=== PATIENT | male | born 1950 | race Caucasian/White ===

== ENCOUNTER → 2018-05-09 | Outpatient (CLI) | payer MEDICARE ==
--- NOTE | 2018-05-13 13:57 | REP ---
Clinical: Shortness of breath . Comparison: None . Technique: PA and lateral. Findings: The mediastinum and cardiac silhouette are normal. The lung osuna are clear and without acute consolidation, effusion, or pneumothorax. The skeletal structures are intact and normal. Impression: 1. No acute cardiopulmonary process. If the patient remains symptomatic consider chest CT for further evaluation.
== END ==
LOC: M CLY 15:36
PROVIDERS: ATTEND Physician Assistant
DX: R06.02 Shortness of breath (principal)

== ENCOUNTER 2018-10-17 12:00 | Outpatient (RCR) | payer MEDICARE ==
[2018-10-17] MEDS ORDERED: LOPR1TAB6 PO (13:55)
[2018-10-17] MEDS ORDERED: LISI-538 PO (13:55)
[2018-10-17] MEDS ORDERED: ASPI81TA85 PO (13:55)
--- NOTE | 2018-10-17 14:03 | CARECAPL ---
Assessment Account #s: Initial Assessment General Diagnoses: CABG Date of event: Jun 21, 2018 Physician: Cristóbal Lakhani Date Entered Program: Oct 17, 2018 Risk strat for cardiac event: Moderate Exercise Date: Oct 17, 2018 Assessment: Initial Assessment Exercise Prescription Plan to educate about cardiac risk factors and to provide a monitored exercise program to build strength and endurance Modalities initiated: Treadmill (will add), Nustep (will add), Arm Aerometer (will add), Dumbells (will add), Recumbent Bike (will add) Frequency: 3-4 Duration (Minutes) 30-60 minutes total exercise a day. 6-15 work intervals in minutes. prn rest intervals in minutes. Functional Capacity Goal Sustained Metabolic Equivalent of a task (MET) goal of for minutes. Intensity: 3-Moderate Progression (METS) Increase by: .5 METS every: 2-3 sessions Angina with ex: No Target Heart Rate rest + 35-40 Resistance Training: Yes Reps: 6-8 Hypertension: Yes Hypertension controlled with: Diet Resting 131/62 Meds see below Medications Scheduled Aspirin (Aspir 81), 81 MG PO DAILY, (Reported) Lisinopril (Lisinopril), 1 TAB PO DAILY, (Reported) Metoprolol Tartrate (Lopressor), 1 TAB PO BID, (Reported) Target Goals Individual exercise Rx (1) BP 140/90 or 130/80 if DM or CKD (1) Aerobic active 30+min 5 days per week (1) Nutrition Date: Oct 17, 2018 Assessment: Initial Assessment Diabetes Diabetes: Yes Diabetes medication insulin Monitor Blood Sugar at home: Yes Weight Management Weight (lbs): 176.4 Height (inches): 64 BMI: 30.2 Special Diet: low salt, mediteranean diet Alcohol: none Diet Access Tool: Rate your plate Score: 58 Intervention Diet Class: Yes (will see this program) Target goal LDL-C<100 if triglycerides are >200 Non-HDL-C should be <130 (1) LDL-C<70 for high risk patients (4) HbA1c<7% (1) BMI<25 Waist cir<40in M/<35in F (1) Education Date: Oct 17, 2018 Assessment: Initial Assessment Learning Barriers: ready Knowledge Test Score: 10 Family Support: Yes Tobacco use: No Quit: >6 months (1979) Intervention Referral to smoking cessation: No Individual education and couns: No Tobacco Adjunct: No Education class schedule given: Yes Target Goals Complete cessation of tobacco use (1). Psychosocial Date: Oct 17, 2018 Assessment: Initial Assessment Psych Test (Initial/Discharge) Tool Used: CESD Score: 4 Intervention Physician Consult: No Physician Referral: No Stress Management Class: Yes Uses Stress Management Skills: Yes Target Goal Assess presence or absence of depression using a valid screening tool (1). Maximize coping skills (2). Positive support system (2). Patient/Program Goal Preventative Medication: Yes Aspirin, Yes Beta blockade, Yes Statin/OTR lipid Lowering Fall Risk Assess: No Provider Assessment Provider Assessment: Proceed with rehab Beth Schwab RN Oct 17, 2018 14:03
[2018-10-21] MEDS ORDERED: CYCL5TAB PO (09:47)
[2018-10-21] MEDS ORDERED: ELIQ5TAB PO (09:47)
[2018-10-21] MEDS ORDERED: TURM500C5 PO (09:47)
[2018-10-21] MEDS ORDERED: ATOR1TAB19 PO (09:47)
[2018-10-21] MEDS ORDERED: METF10004 PO (09:47)
[2018-10-21] MEDS ORDERED: B-12100021 PO (09:47)
[2018-10-21] MEDS ORDERED: FLON1SPR NARES (09:47)
[2018-10-21] MEDS ORDERED: BASA100I SC (09:47)
[2018-10-21] MEDS ORDERED: VITA200028 PO (09:47)
== END 2018-10-20 ==
LOC: M CR 12:00
DX: Z95.1 Presence of aortocoronary bypass graft (principal)

== ENCOUNTER 2018-11-15 09:48 | Outpatient (RCR) | payer MEDICARE ==
--- NOTE | 2018-11-11 16:32 | CARECAPL ---
Assessment Account #s: Re-Assessment I General Diagnoses: CABG Date of event: Jun 21, 2018 Physician: Cristóbal Lakhani Date Entered Program: Oct 17, 2018 Risk strat for cardiac event: Moderate Exercise Date: Nov 11, 2018 Assessment: Re-Assessment I Exercise Prescription Plan TO EDUCATE AND BUILD ENDURANCE THROUGH MONITORED EXERCISE Modalities initiated: Treadmill (METS=3.63/RPE=2), Nustep (METS=5.6/RPE=3), Arm Aerometer (METS=3.6/RPE=3), Dumbells (5#/RPE=2), Recumbent Bike (METS=2.9/RPE=3) Frequency: 3 Duration (Minutes) 30-60 minutes total exercise a day. 10-12 work intervals in minutes. 5 rest intervals in minutes. Functional Capacity Goal Sustained Metabolic Equivalent of a task (MET) goal of 3.75-4.75 for 15-20 minutes. Intensity: 3-Moderate Progression (METS) Increase by: 0.5 METS every: 5 sessions Angina with ex: No Target Heart Rate +35-40 Resistance Training: Yes Weight (pounds): 5 Reps: 12-15 Hypertension: Yes Hypertension controlled with: Medication Resting 98/60 Peak Exercise BP 148/80 Medications Scheduled Apixaban (Eliquis), 5 MG PO BID, (Reported) Aspirin (Aspir 81), 81 MG PO DAILY, (Reported) Atorvastatin Calcium (Atorvastatin Calcium), 10 MG PO DAILY, (Reported) Cyanocobalamin (Vitamin B-12) (B-12), 1,000 MCG PO DAILY, (Reported) Ergocalciferol (Vitamin D2) (Vitamin D2), 1 TAB PO DAILY, (Reported) Fluticasone Propionate (Flonase Allergy Relief), 1 SPRAY NARES DAILY, (Reported) Lisinopril (Lisinopril), 2.5 TAB PO DAILY, (Reported) Metformin HCl (Metformin HCl), 1 GRAM PO BID, (Reported) Metoprolol Tartrate (Lopressor), 25 TAB PO BID, (Reported) Turmeric Root Extract (Turmeric), 1,053 MG PO DAILY, (Reported) Scheduled PRN Cyclobenzaprine HCl (Cyclobenzaprine HCl), 5 MG PO TIDP PRN for muscle spasms, (Reported) Miscellaneous Medications Insulin Glargine,Hum.rec.anlog (Basaglar Kwikpen U-100), 100 UNIT SC, (Reported) Current BP 104/88 Med Change: No Intervention Resistance Training: Yes Education: Self pulse, Ex safety, S/S to report (INSTRUCTED TO NOTIFY STAFF OF CHEST PAIN/SOB), Low NA diet, BP medication, RPE Scale, Equipment orientation (ORIENTED TO EACH PIECE OF EQUIPMENT USED), warm up/cool down (EDUCATED ON IMPORTANCE OF WARM UPS PRIOR TO EXERCISE AND COOL DOWNS AFTER EXERCISE), Understand BP, Physical Active (INSTRUCTED ON IMPORTANCE OF CONTINUED EXERCISE AFTER FINISHING CARDIAC REHAB PROGRAM) Target Goals Individual exercise Rx (1) BP 140/90 or 130/80 if DM or CKD (1) Aerobic active 30+min 5 days per week (1) Nutrition Date: Nov 11, 2018 Assessment: Re-Assessment I Med Change: No Diabetes Diabetes: No Monitor Blood Sugar at home: No Medication Change: No Weight Management Weight (lbs): 176 Special Diet: low salt, mediteranean diet Alcohol: none Current Weight (pounds): 176 Intervention Tilting Head Band Sawyer Consult: Yes (WILL SEE EXPLOSIVE MAN WHILE IN PROGRAM) Nurse/patient discussion: Yes Dietary Goals MAKE HEART HEALTHY CHOICES Diet Class: Yes Referral to Diabetes education: No Referral to lipid clinic: No Referral to weight mangement p: No Education Eating Healthy Target goal LDL-C<100 if triglycerides are >200 Non-HDL-C should be <130 (1) LDL-C<70 for high risk patients (4) HbA1c<7% (1) BMI<25 Waist cir<40in M/<35in F (1) Education Date: Nov 11, 2018 Assessment: Re-Assessment I Learning Barriers: ready Family Support: Yes Tobacco use: No Tobacco Use Smokeless tobacco: No Intervention Referral to smoking cessation: No Individual education and couns: No Tobacco Adjunct: No Education class schedule given: No Attended education classes: No Education: CAD, Risk factors, med compliance (EDUCATED ON IMPORTANCE OF TAKING MEDS PRESCRIBED), cardiac A&P, Angina S/S, Sexuality Target Goals Complete cessation of tobacco use (1). Psychosocial Date: Nov 11, 2018 Assessment: Re-Assessment I Intervention Physician Consult: No Physician Referral: No Med Change: No Stress Management Class: No Uses Stress Management Skills: Yes Education Education: Coping Techniques, S/S depression, Relaxation Techniques Target Goal Assess presence or absence of depression using a valid screening tool (1). Maximize coping skills (2). Positive support system (2). Patient/Program Goal Preventative Medication: Yes Aspirin, Yes Beta blockade Fall Risk Assess: Yes (NOT A FALL RISK) Provider Assessment Session Number: 9 Provider Assessment: Proceed with rehab Cahpin Alba RN Nov 11, 2018 16:32
[~2018-11-15 09:48] MED LIST: ASPI81TA85 PO; ATOR1TAB19 PO; B-12100021 PO; BASA100I SC; CYCL5TAB PO; ELIQ5TAB PO; FLON1SPR NARES; LISI-538 PO; LOPR1TAB6 PO; METF10004 PO; TURM500C5 PO; VITA200028 PO
[2018-11-22] MEDS ORDERED: VICT18IN SC (07:54)
== END 2018-11-20 ==
LOC: M CR 09:48
DX: Z95.1 Presence of aortocoronary bypass graft (principal)

== ENCOUNTER 2018-12-20 08:07 | Outpatient (RCR) | payer MEDICARE ==
--- NOTE | 2018-12-04 10:27 | CARECAPL ---
Assessment Account #s: Re-Assessment II General Diagnoses: CABG Date of event: Jun 21, 2018 Physician: Cristóbal Lakhani Date Entered Program: Oct 17, 2018 Risk strat for cardiac event: Moderate Exercise Date: Dec 04, 2018 Assessment: Re-Assessment II Exercise Prescription Modalities initiated: Treadmill (2.0/.5 mts 2.81 rpe 2 12 minutes), Nustep (L7 mts 5.7 rpe 3 15 minutes), Arm Aerometer (3.0 mts 3.8 rpe 3 10 minutes), Dumbells, Recumbent Bike (R5 mts 4.3 rpe 3 10 minutes) Duration (Minutes) minutes total exercise a day. work intervals in minutes. rest intervals in minutes. Functional Capacity Goal Sustained Metabolic Equivalent of a task (MET) goal of for minutes. Progression (METS) Increase by: METS every: sessions Resistance Training: Yes Weight (pounds): 6 Reps: 8-12 Medications Scheduled Apixaban (Eliquis), 5 MG PO BID, (Reported) Aspirin (Aspir 81), 81 MG PO DAILY, (Reported) Atorvastatin Calcium (Atorvastatin Calcium), 10 MG PO DAILY, (Reported) Cyanocobalamin (Vitamin B-12) (B-12), 1,000 MCG PO DAILY, (Reported) Ergocalciferol (Vitamin D2) (Vitamin D2), 1 TAB PO DAILY, (Reported) Fluticasone Propionate (Flonase Allergy Relief), 1 SPRAY NARES DAILY, (Reported) Liraglutide (Victoza 2-Дмитрий), 1.2 MG SC DAILY, (Reported) Lisinopril (Lisinopril), 2.5 TAB PO DAILY, (Reported) Metformin HCl (Metformin HCl), 1 GRAM PO BID, (Reported) Metoprolol Tartrate (Lopressor), 25 TAB PO BID, (Reported) Turmeric Root Extract (Turmeric), 1,053 MG PO DAILY, (Reported) Scheduled PRN Cyclobenzaprine HCl (Cyclobenzaprine HCl), 5 MG PO TIDP PRN for muscle spasms, (Reported) Miscellaneous Medications Insulin Glargine,Hum.rec.anlog (Basaglar Kwikpen U-100), 100 UNIT SC, (Reported) Current BP 120/80 Med Change: No Intervention Home exercise: Type (home exercise program on last ITP) Education Goals Met: Yes (all education covered on last ITP) Target Goals Individual exercise Rx (1) BP 140/90 or 130/80 if DM or CKD (1) Aerobic active 30+min 5 days per week (1) Nutrition Date: Dec 04, 2018 Assessment: Re-Assessment II Med Change: No Current Weight (pounds): 178 Intervention 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 Psychosocial Date: Dec 04, 2018 Assessment: Re-Assessment II Med Change: No Education Goals Met: Yes (all education covered on last ITP) Target Goal Assess presence or absence of depression using a valid screening tool (1). Maximize coping skills (2). Positive support system (2). Provider Assessment Session Number: 14 Provider Assessment: No changes (good attendance. Works hard, has excellent attitude) Beth cShwab RN Dec 04, 2018 10:27
[~2018-12-20 08:07] MED LIST changes: +VICT18IN SC
== END 2018-12-21 ==
LOC: M CR 08:07
PROVIDERS: ATTEND Internal Medicine
DX: Z95.1 Presence of aortocoronary bypass graft (principal)

== ENCOUNTER 2018-12-27 08:05 | Outpatient (RCR) | payer MEDICARE ==
--- NOTE | 2018-12-25 08:54 | CARECAPL ---
Assessment Account #s: Re-Assessment II (III) General Diagnoses: CABG Date of event: Jun 21, 2018 Physician: Cristóbal Lakhani Date Entered Program: Oct 17, 2018 Risk strat for cardiac event: Moderate Exercise Date: Dec 25, 2018 Assessment: Re-Assessment II (III) Stages of change: Pre-contemplation Exercise Prescription Modalities initiated: Treadmill (2.0/5.0 mts 3.91 rpe 3), Nustep (L7 mts 3.8 rpe 3 15 minutes), Arm Aerometer (3.5 mts 4.2 rpe 3 10 minutes), Dumbells, Recumbent Bike (R5 mts 4.9 rpe 3 10 minutes) Duration (Minutes) 30 - 60 minutes total exercise a day. 15 - 20 work intervals in minutes. PRN rest intervals in minutes. Functional Capacity Goal Sustained Metabolic Equivalent of a task (MET) goal of 5.0-6.0 for 15-20 minutes. Intensity: 3-Moderate Progression (METS) Increase by: METS every: sessions Angina with ex: No Resistance Training: Yes Weight (pounds): 8 Reps: 8-12 Medications Scheduled Apixaban (Eliquis), 5 MG PO BID, (Reported) Aspirin (Aspir 81), 81 MG PO DAILY, (Reported) Atorvastatin Calcium (Atorvastatin Calcium), 10 MG PO DAILY, (Reported) Cyanocobalamin (Vitamin B-12) (B-12), 1,000 MCG PO DAILY, (Reported) Ergocalciferol (Vitamin D2) (Vitamin D2), 1 TAB PO DAILY, (Reported) Fluticasone Propionate (Flonase Allergy Relief), 1 SPRAY NARES DAILY, (Reported) Liraglutide (Victoza 2-Дмитрий), 1.2 MG SC DAILY, (Reported) Lisinopril (Lisinopril), 2.5 TAB PO DAILY, (Reported) Metformin HCl (Metformin HCl), 1 GRAM PO BID, (Reported) Metoprolol Tartrate (Lopressor), 25 TAB PO BID, (Reported) Turmeric Root Extract (Turmeric), 1,053 MG PO DAILY, (Reported) Scheduled PRN Cyclobenzaprine HCl (Cyclobenzaprine HCl), 5 MG PO TIDP PRN for muscle spasms, (Reported) Miscellaneous Medications Insulin Glargine,Hum.rec.anlog (Edmund Azevedo U-100), 100 UNIT SC, (Reported) Current BP 118/78 Med Change: No Intervention Home exercise: Type (see prior ITP) Education Goals Met: Yes (all education done on prior ITP) Target Goals Individual exercise Rx (1) BP 140/90 or 130/80 if DM or CKD (1) Aerobic active 30+min 5 days per week (1) Nutrition Date: Dec 25, 2018 Assessment: Re-Assessment II (III) Diabetes Diabetes: Yes Medication Change: No Random Blood Sugar: 104 Blood sugar in range: Yes Current Weight (pounds): 178 Weight Goal 160 Intervention Diet Class: Yes (met with rn community health on 10/21/2018) Referral to Diabetes education: No Referral to lipid clinic: No Referral to weight mangement p: No Education Goals Met: No (progressing toward goals.) Target goal LDL-C<100 if triglycerides are >200 Non-HDL-C should be <130 (1) LDL-C<70 for high risk patients (4) HbA1c<7% (1) BMI<25 Waist cir<40in M/<35in F (1) Education Date: Dec 25, 2018 Assessment: Re-Assessment II (III) Stages of change: Pre-contemplation Education Goals Met: No (progressing toward goals all education covered on previous ITP) Target Goals Complete cessation of tobacco use (1). Psychosocial Date: Dec 25, 2018 Assessment: Re-Assessment II (III) Stages of change: Pre-contemplation Stress Management Class: Yes Uses Stress Management Skills: Yes Education Goals Met: No (all education covered on prior ITP) Target Goal Assess presence or absence of depression using a valid screening tool (1). Maximize coping skills (2). Positive support system (2). Provider Assessment Session Number: 19 Provider Assessment: No changes (excellent attendance, work ethic and very receptive to continued education) Beth Schwab RN Dec 25, 2018 08:54
--- NOTE | 2019-01-08 16:55 | CARECAPL ---
Assessment Account #s: Discharge General Diagnoses: CABG Date of event: Jun 21, 2018 Physician: Cristóbal Lakhani Date Entered Program: Oct 17, 2018 Risk strat for cardiac event: Moderate Exercise Assessment: Followup/Discharge Stages of change: maintenance Exercise Prescription Modalities initiated: Treadmill (METS=3.36/RPE=3), Nustep (METS=4.6/RPE=3), Arm Aerometer (METS=4.1/RPE=3), Dumbells (8#/RPE=3), Recumbent Bike (METS=4.9/RPE=3) Frequency: 3 Duration (Minutes) 30 - 60 minutes total exercise a day. 15 - 20 work intervals in minutes. PRN rest intervals in minutes. Functional Capacity Goal Sustained Metabolic Equivalent of a task (MET) goal of 5.0-6.0 for 15-20 minutes. Intensity: 3-Moderate Progression (METS) Increase by: METS every: sessions Angina with ex: No Resistance Training: Yes Weight (pounds): 8 Reps: 12-15 Hypertension: Yes Hypertension controlled with: Medication (METOPROLOL/LISINOPRIL) Resting 130/80 Peak Exercise BP 148/84 Medications Scheduled Apixaban (Eliquis), 5 MG PO BID, (Reported) Aspirin (Aspir 81), 81 MG PO DAILY, (Reported) Atorvastatin Calcium (Atorvastatin Calcium), 10 MG PO DAILY, (Reported) Cyanocobalamin (Vitamin B-12) (B-12), 1,000 MCG PO DAILY, (Reported) Ergocalciferol (Vitamin D2) (Vitamin D2), 1 TAB PO DAILY, (Reported) Fluticasone Propionate (Flonase Allergy Relief), 1 SPRAY NARES DAILY, (Reported) Liraglutide (Victoza 2-Дмитрий), 1.2 MG SC DAILY, (Reported) Lisinopril (Lisinopril), 2.5 TAB PO DAILY, (Reported) Metformin HCl (Metformin HCl), 1 GRAM PO BID, (Reported) Metoprolol Tartrate (Lopressor), 25 TAB PO BID, (Reported) Turmeric Root Extract (Turmeric), 1,053 MG PO DAILY, (Reported) Scheduled PRN Cyclobenzaprine HCl (Cyclobenzaprine HCl), 5 MG PO TIDP PRN for muscle spasms, (Reported) Miscellaneous Medications Insulin Glargine,Hum.rec.anlog (Edmund Apontepen U-100), 100 UNIT SC, (Reported) Current BP 130/80 Med Change: No Intervention Resistance Training: Yes Education: Self pulse (EDUCATION DONE ON PRIOR ITP) Education Goals Met: Yes Target Goals Individual exercise Rx (1) BP 140/90 or 130/80 if DM or CKD (1) Aerobic active 30+min 5 days per week (1) Nutrition Date: Jan 08, 2019 Assessment: Followup/Discharge Stages of change: maintenance Lipid- med/supplement ATORVASTATIN 10 MG DAILY Med Change: No Diabetes Diabetes: Yes Diabetes medication METFORMIN, Monitor Blood Sugar at home: Yes Medication Change: No Blood sugar in range: Yes Weight Management Weight (lbs): 178 Weight goal: 160 Special Diet: low salt, low-fat Current Weight (pounds): 178 Weight Goal 160 Intervention Risk Specialist Consult: No Nurse/patient discussion: Yes Dietary Goals MAKE HEART HEALTHY CHOICES Diet Class: Yes (MET WITH ASSESSMENT COUNSELOR 10/21/2018) Referral to Diabetes education: No Referral to lipid clinic: No Referral to weight mangement p: No Education S&S hypo/hyper glycemia, Relate Diabetes in CAD, Eating Healthy Education Goals Met: Yes Target goal LDL-C<100 if triglycerides are >200 Non-HDL-C should be <130 (1) LDL-C<70 for high risk patients (4) HbA1c<7% (1) BMI<25 Waist cir<40in M/<35in F (1) Education Date: Jan 08, 2019 Assessment: Followup/Discharge Learning Barriers: ready Stages of change: maintenance Family Support: Yes Tobacco use: No Tobacco Use Smokeless tobacco: No Intervention Referral to smoking cessation: No Individual education and couns: No Tobacco Adjunct: No Education class schedule given: No Attended education classes: No Education: CAD, Risk factors, med compliance, cardiac A&P, Angina S/S, Sexuality Education Goals Met: Yes Target Goals Complete cessation of tobacco use (1). Psychosocial Date: Jan 08, 2019 Assessment: Followup/Discharge Stages of change: maintenance Intervention Physician Consult: No Physician Referral: No Med Change: No Stress Management Class: No Uses Stress Management Skills: Yes Education Education: Coping Techniques (ALL EDUCATION COVERED ON PRIOR ITP), S/S depression, Relaxation Techniques Education Goals Met: Yes Target Goal Assess presence or absence of depression using a valid screening tool (1). Maximize coping skills (2). Positive support system (2). Fall Risk Assess: Yes (NOT ) Provider Assessment Session Number: 21 Provider Assessment: Proceed with rehab Chapin Alba RN Jan 08, 2019 16:55
== END 2019-01-20 ==
LOC: M CR 08:05
PROVIDERS: ATTEND Internal Medicine
DX: Z95.1 Presence of aortocoronary bypass graft (principal)

== ENCOUNTER 2022-09-05 12:22 | Inpatient (IN) | payer MEDICARE ==
[~2022-09-05] VITALS: Ht 162.6 cm; Wt 80.9 kg
[~2022-09-05 12:22] MED LIST changes: -ASPI81TA85 PO; +ASPI81TA86 PO; -LISI-538 PO; +LISI20TA33 PO
[2022-09-05 13:44] LABS: BASO % 0.3 % (0.0-1.0); EOS % 0.2 % (0.0-3.0); HEMATOCRIT 42.3 % (42.0-52.0); HEMOGLOBIN 13.6 g/dl (13.5-17.5); LYMPH # 1.5 10^3/uL (1.5-5.0); LYMPH % 12.9 % (24.0-44.0); MEAN CORPUSCULAR HEMOGLOBIN 28.3 pg (27.0-33.0); MEAN CORPUSCULAR HGB CONC 32.2 g/dl (32.0-36.5); MEAN CORPUSCULAR VOLUME 88.1 fl (80.0-96.0); MONO # 1.4 10^3/uL (0.0-0.8); NEUTROPHILS # 8.8 10^3/uL (1.5-8.5); NEUTROPHILS % 74.4 % (36.0-66.0); PLATELET COUNT, AUTOMATED 201 10^3/uL (150-450); WHITE BLOOD COUNT 11.8 10^3/uL (4.0-10.0)
[2022-09-05 14:11] LABS: BLOOD UREA NITROGEN 23 MG/DL (9-23); CALCIUM LEVEL 9.4 MG/DL (8.3-10.6); CARBON DIOXIDE LEVEL 26 MMOL/L (20-31); CHLORIDE LEVEL 100 MMOL/L (98-107); CREATININE FOR GFR 0.81 MG/DL (0.70-1.30); GLOMERULAR FILTRATION RATE > 60.0 (>42); GLUCOSE, FASTING 135 MG/DL (74-106); POTASSIUM SERUM 3.9 MMOL/L (3.5-5.1); SODIUM LEVEL 136 MMOL/L (136-145)
[2022-09-05 14:20] LABS: ERYTHROCYTE SEDIMENTATION RATE 89 mm/hr (0-20)
[2022-09-05] MEDS ORDERED: ROSU20TA5 PO (15:00)
[2022-09-05] MEDS ORDERED: NOXI1TAB PO (15:00)
[2022-09-05] MEDS ORDERED: METO1TAB32 PO (15:05)
[2022-09-05] MEDS ORDERED: PRES10CA2 PO (15:05)
[2022-09-05] MEDS ORDERED: TRUL10IN SC (15:05)
[2022-09-05] MEDS ORDERED: VANCOMYCIN HCL 1,500 MG in IV FLUID PLACE HOLDER 1 EA IV ONE (15:55)
[2022-09-05 16:19] LABS: RHEUMATOID FACTOR QUANT 9.5 IU/ML (<14)
[2022-09-05] MEDS ORDERED: VANCOMYCIN HCL 750 MG, VIAL MATE ADAPTER 1 EACH in D5W 250 ML IV ONE ×2 (16:30→17:30)
[2022-09-05] MEDS: INSULIN LISPRO (NovoLOG) PER UNIT SC SCH ×2 (17:30→20:43)
[2022-09-05] MEDS ORDERED: PIPERACILLIN/TAZOBACTAM SOD 3.375 GM in D5W MINI-BAG PLUS 50 ML IV ONE (17:30)
[2022-09-05] MEDS ORDERED: DEXTROSE 50% 50ML SYRINGE IV PRN (17:45)
[2022-09-05] MEDS ORDERED: GLUCAGON INJ 1MG VIAL SC PRN (17:45)
[2022-09-05] MEDS ORDERED: GLUCOSE 4GM CHEW TABLET PO PRN (17:45)
[2022-09-05] MEDS ORDERED: MORPHINE 2 MG/ML 1ML VIAL IV PRN ×2 (17:45)
[2022-09-05 18:21] LABS: ALBUMIN 3.7 G/DL (3.2-5.2); ALKALINE PHOSPHATASE 96 U/L (46-116); ALT/SGPT < 9 U/L (7.0-40); AST/SGOT 15 U/L (<34); BILIRUBIN,DIRECT 0.3 MG/DL (<0.4); BILIRUBIN,TOTAL 1.1 MG/DL (0.3-1.2); TOTAL PROTEIN 7.8 G/DL (5.7-8.2)
[2022-09-05 18:22] LABS: URIC ACID 4.3 MG/DL (3.7-9.2)
[2022-09-05] MEDS ORDERED: ASPI81CH33 PO (18:55)
[2022-09-05] MEDS ORDERED: JARD1TAB PO (18:55)
[2022-09-05] MEDS ORDERED: METF-723 PO (18:55)
[2022-09-05] MEDS ORDERED: LISI2.5T8 PO (18:55)
[2022-09-05] MEDS ORDERED: HOME MED LIST COMPLETE! XX SCH (19:00)
[2022-09-05 19:32] LABS: INR 1.05; PROTHROMBIN TIME 13.9 SECONDS (12.5-14.5)
[2022-09-05 19:33] LABS: PARTIAL THROMBOPLASTIN TIME 29.5 SECONDS (24.8-34.2)
[2022-09-05 19:39] LABS: HEMOGLOBIN A1c 6.7 % (4.0-6.0)
[2022-09-05] MEDS: LACTOBACILLUS ACIDOPHILUS CAP (BACID) PO SCH (20:45)
[2022-09-05 21:50] VITALS: BP 133/73
[2022-09-06] MEDS: PIPERACILLIN/TAZOBACTAM SOD 3.375 GM in D5W MINI-BAG PLUS 50 ML IV SCH ×4 (01:24→18:52)
[2022-09-06] MEDS ORDERED: VANCOMYCIN HCL 1,000 MG, VIAL MATE ADAPTER 1 EACH in D5W 250 ML IV SCH (03:00)
[2022-09-06 05:23] VITALS: BP 125/76
[2022-09-06] MEDS: ACETAMINOPHEN TAB 650MG DOSE (2X325MG) PO PRN ×2 (05:43→21:02)
[2022-09-06 07:12] LABS: HEMOGLOBIN 13.1 g/dl (13.5-17.5); MEAN CORPUSCULAR HEMOGLOBIN 27.4 pg (27.0-33.0); MEAN CORPUSCULAR HGB CONC 31.2 g/dl (32.0-36.5); MEAN CORPUSCULAR VOLUME 87.9 fl (80.0-96.0); PLATELET COUNT, AUTOMATED 181 10^3/uL (150-450); RED BLOOD COUNT 4.78 10^6/uL (4.30-6.10)
[2022-09-06 08:51] LABS: ERYTHROCYTE SEDIMENTATION RATE 126 mm/hr (0-20)
[2022-09-06 09:05] LABS: ALBUMIN 3.3 G/DL (3.2-5.2); ALKALINE PHOSPHATASE 86 U/L (46-116); ALT/SGPT < 9 U/L (7.0-40); AST/SGOT 12 U/L (<34); BLOOD UREA NITROGEN 21 MG/DL (9-23); CALCIUM LEVEL 8.8 MG/DL (8.3-10.6); CARBON DIOXIDE LEVEL 24 MMOL/L (20-31); CHLORIDE LEVEL 100 MMOL/L (98-107); CREATININE FOR GFR 0.74 MG/DL (0.70-1.30); GLOMERULAR FILTRATION RATE > 60.0 (>42); GLUCOSE, FASTING 148 MG/DL (74-106); POTASSIUM SERUM 4.1 MMOL/L (3.5-5.1); SODIUM LEVEL 135 MMOL/L (136-145)
[2022-09-06] MEDS: FLUTICASONE PROP 0.05% NASAL SPRAY 16 GM (FLONASE) NARES SCH (09:35)
[2022-09-06] MEDS: INSULIN LISPRO (NovoLOG) PER UNIT SC SCH ×4 (09:35→20:53)
[2022-09-06] MEDS: METOPROLOL SUCC *XL* 25MG TAB (TopROL *XL*) PO SCH (09:40)
[2022-09-06] MEDS: ENOXAPARIN 40MG/0.4ML SYRINGE (J1650 PER 10MG) SC SCH (09:41)
[2022-09-06] MEDS: LISINOPRIL *2.5 MG* TAB PO SCH (09:52)
[2022-09-06] MEDS: LACTOBACILLUS ACIDOPHILUS CAP (BACID) PO SCH ×2 (09:53→17:36)
[2022-09-06] MEDS: ASPIRIN 81MG CHEW TABLET PO SCH (09:53)
[2022-09-06] MEDS: ROSUVASTATIN 10 MG TAB (CRESTOR) PO SCH (09:53)
[2022-09-06 14:00] VITALS: BP 118/68
[2022-09-06] MEDS: VANCOMYCIN HCL 750 MG, VIAL MATE ADAPTER 1 EACH in D5W 250 ML IV SCH (16:12)
[2022-09-06] MEDS: VANCOMYCIN HCL 500 MG in D5W MINI-BAG PLUS 100 ML IV SCH (17:36)
[2022-09-06 20:49] VITALS: BP 118/66
[2022-09-07] MEDS: PIPERACILLIN/TAZOBACTAM SOD 3.375 GM in D5W MINI-BAG PLUS 50 ML IV SCH ×4 (01:32→17:54)
[2022-09-07] MEDS: VANCOMYCIN HCL 750 MG, VIAL MATE ADAPTER 1 EACH in D5W 250 ML IV SCH (04:48)
[2022-09-07 06:18] VITALS: BP 123/68
[2022-09-07] MEDS: VANCOMYCIN HCL 500 MG in D5W MINI-BAG PLUS 100 ML IV SCH (06:19)
[2022-09-07 07:00] LABS: HEMATOCRIT 39.6 % (42.0-52.0); HEMOGLOBIN 12.5 g/dl (13.5-17.5); MEAN CORPUSCULAR HEMOGLOBIN 27.3 pg (27.0-33.0); MEAN CORPUSCULAR HGB CONC 31.6 g/dl (32.0-36.5); MEAN CORPUSCULAR VOLUME 86.5 fl (80.0-96.0); PLATELET COUNT, AUTOMATED 191 10^3/uL (150-450); RED BLOOD COUNT 4.58 10^6/uL (4.30-6.10); WHITE BLOOD COUNT 7.6 10^3/uL (4.0-10.0)
[2022-09-07 07:27] LABS: ALBUMIN 3.1 G/DL (3.2-5.2); ALKALINE PHOSPHATASE 80 U/L (46-116); ALT/SGPT < 9 U/L (7.0-40); AST/SGOT 18 U/L (<34); BILIRUBIN,TOTAL 0.8 MG/DL (0.3-1.2); BLOOD UREA NITROGEN 18 MG/DL (9-23); CALCIUM LEVEL 8.9 MG/DL (8.3-10.6); CARBON DIOXIDE LEVEL 28 MMOL/L (20-31); CHLORIDE LEVEL 101 MMOL/L (98-107); CREATININE FOR GFR 0.64 MG/DL (0.70-1.30); GLOMERULAR FILTRATION RATE > 60.0 (>42); GLUCOSE, FASTING 175 MG/DL (74-106); SODIUM LEVEL 134 MMOL/L (136-145); TOTAL PROTEIN 6.8 G/DL (5.7-8.2)
[2022-09-07] MEDS: ROSUVASTATIN 10 MG TAB (CRESTOR) PO SCH (07:55)
[2022-09-07] MEDS: LACTOBACILLUS ACIDOPHILUS CAP (BACID) PO SCH ×2 (07:55→17:52)
[2022-09-07] MEDS: LISINOPRIL *2.5 MG* TAB PO SCH (07:56)
[2022-09-07] MEDS: ASPIRIN 81MG CHEW TABLET PO SCH (07:56)
[2022-09-07] MEDS: METOPROLOL SUCC *XL* 25MG TAB (TopROL *XL*) PO SCH (07:58)
[2022-09-07] MEDS: INSULIN LISPRO (NovoLOG) PER UNIT SC SCH ×4 (07:58→20:27)
[2022-09-07] MEDS: ENOXAPARIN 40MG/0.4ML SYRINGE (J1650 PER 10MG) SC SCH (08:00)
[2022-09-07] MEDS: FLUTICASONE PROP 0.05% NASAL SPRAY 16 GM (FLONASE) NARES SCH (08:01)
[2022-09-07 14:00] VITALS: BP 111/67
[2022-09-07 20:02] VITALS: BP 114/67
[2022-09-08] MEDS: PIPERACILLIN/TAZOBACTAM SOD 3.375 GM in D5W MINI-BAG PLUS 50 ML IV SCH ×4 (01:08→18:19)
[2022-09-08 06:01] VITALS: BP 118/68
[2022-09-08 06:03] LABS: HEMATOCRIT 40.1 % (42.0-52.0); HEMOGLOBIN 12.6 g/dl (13.5-17.5); MEAN CORPUSCULAR HEMOGLOBIN 27.5 pg (27.0-33.0); MEAN CORPUSCULAR HGB CONC 31.4 g/dl (32.0-36.5); MEAN CORPUSCULAR VOLUME 87.6 fl (80.0-96.0); PLATELET COUNT, AUTOMATED 193 10^3/uL (150-450); RED BLOOD COUNT 4.58 10^6/uL (4.30-6.10); WHITE BLOOD COUNT 6.5 10^3/uL (4.0-10.0)
[2022-09-08 06:35] LABS: ALBUMIN 3.1 G/DL (3.2-5.2); ALKALINE PHOSPHATASE 76 U/L (46-116); ALT/SGPT 10 U/L (7.0-40); AST/SGOT 22 U/L (<34); BILIRUBIN,TOTAL 0.5 MG/DL (0.3-1.2); BLOOD UREA NITROGEN 19 MG/DL (9-23); CALCIUM LEVEL 9.1 MG/DL (8.3-10.6); CARBON DIOXIDE LEVEL 29 MMOL/L (20-31); CHLORIDE LEVEL 102 MMOL/L (98-107); CREATININE FOR GFR 0.65 MG/DL (0.70-1.30); GLOMERULAR FILTRATION RATE > 60.0 (>42); GLUCOSE, FASTING 163 MG/DL (74-106); POTASSIUM SERUM 4.3 MMOL/L (3.5-5.1); SODIUM LEVEL 136 MMOL/L (136-145); TOTAL PROTEIN 6.9 G/DL (5.7-8.2)
[2022-09-08] MEDS ORDERED: CEPH500C PO (07:29)
[2022-09-08] MEDS ORDERED: RISATAB3 PO (07:29)
[2022-09-08] MEDS ORDERED: TRAM50TA2 PO (07:30)
[2022-09-08] MEDS ORDERED: ACET1TAB55 PO (07:30)
[2022-09-08] MEDS ORDERED: PIPERACILLIN/TAZOBACTAM SOD 3.375 GM in D5W MINI-BAG PLUS 50 ML IV ONE (07:40)
[2022-09-08 08:35] LABS: ERYTHROCYTE SEDIMENTATION RATE 93 mm/hr (0-20)
[2022-09-08] MEDS: ROSUVASTATIN 10 MG TAB (CRESTOR) PO SCH (08:55)
[2022-09-08] MEDS: ENOXAPARIN 40MG/0.4ML SYRINGE (J1650 PER 10MG) SC SCH (08:55)
[2022-09-08] MEDS: LISINOPRIL *2.5 MG* TAB PO SCH (08:55)
[2022-09-08] MEDS: LACTOBACILLUS ACIDOPHILUS CAP (BACID) PO SCH ×2 (08:56→17:26)
[2022-09-08] MEDS: METOPROLOL SUCC *XL* 25MG TAB (TopROL *XL*) PO SCH (08:56)
[2022-09-08] MEDS: ASPIRIN 81MG CHEW TABLET PO SCH (08:56)
[2022-09-08] MEDS: INSULIN LISPRO (NovoLOG) PER UNIT SC SCH ×4 (08:57→20:49)
[2022-09-08] MEDS: FLUTICASONE PROP 0.05% NASAL SPRAY 16 GM (FLONASE) NARES SCH (08:58)
[2022-09-08 13:47] VITALS: BP 119/69
[2022-09-08 20:35] VITALS: BP 119/70
[2022-09-09] MEDS: PIPERACILLIN/TAZOBACTAM SOD 3.375 GM in D5W MINI-BAG PLUS 50 ML IV SCH ×2 (01:02→06:33)
[2022-09-09 06:02] VITALS: BP 118/70
[2022-09-09 06:54] LABS: HEMATOCRIT 40.5 % (42.0-52.0); HEMOGLOBIN 12.6 g/dl (13.5-17.5); MEAN CORPUSCULAR HEMOGLOBIN 27.6 pg (27.0-33.0); MEAN CORPUSCULAR HGB CONC 31.1 g/dl (32.0-36.5); MEAN CORPUSCULAR VOLUME 88.6 fl (80.0-96.0); PLATELET COUNT, AUTOMATED 207 10^3/uL (150-450); RED BLOOD COUNT 4.57 10^6/uL (4.30-6.10); WHITE BLOOD COUNT 7.1 10^3/uL (4.0-10.0)
[2022-09-09 07:09] LABS: ALBUMIN 3.2 G/DL (3.2-5.2); ALKALINE PHOSPHATASE 75 U/L (46-116); ALT/SGPT 10 U/L (7.0-40); AST/SGOT 21 U/L (<34); BILIRUBIN,TOTAL 0.5 MG/DL (0.3-1.2); BLOOD UREA NITROGEN 17 MG/DL (9-23); CALCIUM LEVEL 9.2 MG/DL (8.3-10.6); CARBON DIOXIDE LEVEL 27 MMOL/L (20-31); CHLORIDE LEVEL 103 MMOL/L (98-107); GLOMERULAR FILTRATION RATE > 60.0 (>42); GLUCOSE, FASTING 167 MG/DL (74-106); POTASSIUM SERUM 4.4 MMOL/L (3.5-5.1); SODIUM LEVEL 136 MMOL/L (136-145); TOTAL PROTEIN 6.9 G/DL (5.7-8.2)
[2022-09-09] MEDS: INSULIN LISPRO (NovoLOG) PER UNIT SC SCH (09:41)
[2022-09-09] MEDS: ENOXAPARIN 40MG/0.4ML SYRINGE (J1650 PER 10MG) SC SCH (09:42)
[2022-09-09] MEDS: LISINOPRIL *2.5 MG* TAB PO SCH (09:43)
[2022-09-09] MEDS: ROSUVASTATIN 10 MG TAB (CRESTOR) PO SCH (09:43)
[2022-09-09] MEDS: LACTOBACILLUS ACIDOPHILUS CAP (BACID) PO SCH (09:43)
[2022-09-09 09:44] VITALS: BP 118/70
[2022-09-09] MEDS: ASPIRIN 81MG CHEW TABLET PO SCH (09:44)
[2022-09-09] MEDS: METOPROLOL SUCC *XL* 25MG TAB (TopROL *XL*) PO SCH (09:44)
[2022-09-09] MEDS: FLUTICASONE PROP 0.05% NASAL SPRAY 16 GM (FLONASE) NARES SCH (09:45)
== END 2022-09-09 11:05 | disposition home health service (06) | DRG 603 ==
LOC: M ED 12:22 → M ED INP 17:43 → M MS5PR 21:35
PROVIDERS: ADMIT Internal Medicine; ATTEND Internal Medicine
DX: L03.114 Cellulitis of left upper limb (principal); I25.10 Atherosclerotic heart disease of native coronary artery without angina pectoris; E11.9 Type 2 diabetes mellitus without complications; E78.5 Hyperlipidemia, unspecified; M54.9 Dorsalgia, unspecified; G89.29 Other chronic pain; E55.9 Vitamin D deficiency, unspecified; E53.8 Deficiency of other specified B group vitamins; Z95.1 Presence of aortocoronary bypass graft; Z87.891 Personal history of nicotine dependence; Z79.82 Long term (current) use of aspirin; Z79.84 Long term (current) use of oral hypoglycemic drugs; Z79.899 Other long term (current) drug therapy